=== PATIENT | male | born 1980 | race Caucasian/White ===

== ENCOUNTER 2020-03-11 08:00 | Outpatient (CLI) | payer MEDICAID ==
[2020-03-11 12:08] LABS: BASOPHILS # (AUTO) 0.1 10^3/uL (0.0-0.1); BASOPHILS % (AUTO) 0.9 %; EOSINOPHILS # (AUTO) 0.2 10^3/uL (0.0-0.7); EOSINOPHILS % (AUTO) 2.6 %; HGB - HEMOGLOBIN 15.3 g/dL (14.0-18.0); LYMPHOCYTES # (AUTO) 2.6 10^3/uL (1.5-3.5); LYMPHOCYTES % (AUTO) 39.3 %; MEAN CORPUSCULAR HEMOGLOBIN 29.3 pg (27.0-31.0); MEAN CORPUSCULAR HGB CONC 33.3 g/dL (32.0-36.0); MEAN PLATELET VOLUME 9.6 fL (7.4-11.4); MONOCYTES # (AUTO) 0.6 10^3/uL (0.0-1.0); MONOCYTES % (AUTO) 9.4 %; NEUTROPHILS # (AUTO) 3.1 10^3/uL (1.5-6.6); NEUTROPHILS % (AUTO) 47.3 %; PLT - PLATELET COUNT 283 10^3/uL (130-450); RED BLOOD COUNT 5.23 10^6/uL (4.70-6.10); RED CELL DISTRIBUTION WIDTH 15.3 % (12.0-15.0); WHITE BLOOD COUNT 6.5 x10^3/uL (4.8-10.8)
[2020-03-11 12:46] LABS: % IRON SATURATION 28 % (20-50); ALBUMIN 4.6 g/dL (3.2-5.5); ALBUMIN/GLOBULIN RATIO 1.4 (1.0-2.2); ALKALINE PHOSPHATASE 67 IU/L (42-121); ALT ALANINE AMINOTRANSFERASE 56 IU/L (10-60); AST ASPARTATE AMINOTRANSFERASE 30 IU/L (10-42); BUN - BLOOD UREA NITROGEN 14 mg/dL (6-20); CALCIUM 9.3 mg/dL (8.5-10.3); CARBON DIOXIDE - CO2 28 mmol/L (21-32); CHLORIDE 106 mmol/L (101-111); CHOL/HDL RATIO 5.2 (<5.0); CHOLESTEROL 207 mg/dL; CREATININE 0.9 mg/dL (0.6-1.2); GLUCOSE 95 mg/dL (70-100); HDL CHOLESTEROL 40 mg/dL; IRON 125 ug/dL (45-182); LDL CHOLESTEROL,CALCULATED 128 mg/dL; LDL/HDL RATIO 3.2 (<3.6); SODIUM 139 mmol/L (135-145); TOTAL IRON BINDING CAPACITY 448 ug/dL (250-450); TRANSFERRIN 320 mg/dL (180-329); VLDL CHOLESTEROL 39 mg/dL
[2020-03-11 12:49] LABS: FERRITIN 70.7 ng/mL (23.9-336.2)
== END 2020-03-11 23:59 | disposition home or self-care (01) ==
LOC: LAB.WCP 08:00
PROVIDERS: ATTEND Registered Nurse
DX: R03.0 Elevated blood-pressure reading, without diagnosis of hypertension (principal); R06.02 Shortness of breath; Z20.5 Contact with and (suspected) exposure to viral hepatitis; R79.0 Abnormal level of blood mineral
CPT/HCPCS: 36415; 80053; 80061; 82728; 83540; 83721; 84443; 84466; 85025

== ENCOUNTER 2023-02-09 10:47 | Emergency (ER) | payer MEDICAID ==
[2023-02-09 11:20] LABS: BASOPHILS % (AUTO) 0.3 %; EOSINOPHILS % (AUTO) 0.6 %; HCT - HEMATOCRIT 44.6 % (42.0-52.0); HGB - HEMOGLOBIN 15.7 g/dL (14.0-18.0); LYMPHOCYTES # (AUTO) 1.1 10^3/uL (1.5-3.5); MEAN CORPUSCULAR HEMOGLOBIN 30.7 pg (27.0-31.0); MEAN CORPUSCULAR HGB CONC 35.2 g/dL (32.0-36.0); MEAN CORPUSCULAR VOLUME 87.1 fL (80.0-94.0); MEAN PLATELET VOLUME 9.5 fL (7.4-11.4); MONOCYTES # (AUTO) 0.5 10^3/uL (0.0-1.0); MONOCYTES % (AUTO) 7.6 %; NEUTROPHILS # (AUTO) 5.2 10^3/uL (1.5-6.6); NEUTROPHILS % (AUTO) 75.1 %; PLT - PLATELET COUNT 271 10^3/uL (130-450); RED BLOOD COUNT 5.12 10^6/uL (4.70-6.10); RED CELL DISTRIBUTION WIDTH 12.4 % (12.0-15.0); WHITE BLOOD COUNT 6.9 x10^3/uL (4.8-10.8)
[2023-02-09 11:32] LABS: ALBUMIN 4.8 g/dL (3.2-5.5); ALBUMIN/GLOBULIN RATIO 1.4 (1.0-2.2); BILIRUBIN,TOTAL 1.4 mg/dL (0.2-1.0); CALCIUM 9.5 mg/dL (8.5-10.3); POTASSIUM 4.4 mmol/L (3.5-5.0); TOTAL PROTEIN 8.2 g/dL (6.7-8.2)
[2023-02-09 12:39] LABS: BILIRUBIN,URINE NEGATIVE (NEGATIVE); CLARITY,URINE CLEAR (CLEAR); GLUCOSE, URINE (UA) NEGATIVE (NEGATIVE); KETONES,URINE (UA) NEGATIVE (NEGATIVE); LEUKOCYTE ESTERASE, URINE NEGATIVE (NEGATIVE); NITRITE,URINE NEGATIVE (NEGATIVE); OCCULT BLOOD,URINE NEGATIVE (NEGATIVE); PROTEIN,URINE NEGATIVE (NEGATIVE); UROBILINOGEN,URINE 0.2 (NORMAL) E.U./dL (NORMAL)
--- NOTE | 2023-02-09 12:45 | ED Physician Documentation ---
History of Present Illness - Stated complaint Stated Complaint: RT SIDE PX,VOMITING - Chief complaint Chief Complaint: Abd Pain - History obtained from History obtained from: Patient - History of Present Illness Timing: Today Pain level max: 7 Pain level now: 4 - Additonal information Additional information: 43 year old male states that he has had dental pain and tried to have a tooth extracted yesterday, but states "they couldn't get me numb" and had to abort the procedure. states took tylenol last night starting at about 6p. States took 15 tabs, 500mg each over the course of 9 hours. Had nausea and vomiting this morning. Started clindamycin last night as well. Sent here from walk in clinic for evaluation. currently asymptomatic. Review of Systems Constitutional: denies: Fever, Chills Respiratory: denies: Cough GI: reports: Nausea, Vomiting (Earlier today). denies: Hematemesis, Bloody / black stool Skin: denies: Rash Musculoskeletal: denies: Neck pain, Back pain Neurologic: denies: Headache PD PAST MEDICAL HISTORY - Past Medical History Past Medical History: No - Past Surgical History Past Surgical History: No - Present Medications Home Medications: Ambulatory Orders Medication Instructions Recorded Confirmed clindamycin HCL [Clindamycin HCl] 300 mg PO QID 02/09/23 02/09/23 - Allergies Allergies/Adverse Reactions: Allergies Allergy/AdvReac Type Severity Reaction Status Date / Time No Known Drug Allergies Allergy Verified 02/09/23 10:57 - Living Situation Living Situation: reports: With family Living Arrangement: reports: At home - Social History Does the pt have substance abuse?: No - Family History Family history: reports: Non contributory PD ED PE NORMAL - Vitals Vital signs reviewed: Yes - General General: Alert and oriented X 3, No acute distress - HEENT HEENT: Moist mucous membranes - Neck Neck: Supple, no meningeal sign - Cardiac Cardiac: RRR - Respiratory Respiratory: No respiratory distress, Clear bilaterally - Abdomen Abdomen: Soft, Non tender, Non distended - Derm Derm: Warm and dry - Neuro Neuro: Alert and oriented X 3 - Psych Psych: Normal mood, Normal affect Results - Vitals Vitals: Vital Signs - 24 hr 02/09/23 02/09/23 02/09/23 10:52 14:00 15:42 Temperature 36.3 C L Heart Rate 67 51 L 50 L Respiratory 14 16 17 Rate Blood Pressure 143/103 H 148/103 H O2 Saturation 98 96 98 02/09/23 02/09/23 02/09/23 16:55 18:00 18:25 Temperature Heart Rate 73 57 L Respiratory 16 16 16 Rate Blood Pressure O2 Saturation 98 97 02/09/23 02/09/23 02/09/23 19:29 20:11 21:40 Temperature 36.2 C L Heart Rate 70 53 L 53 L Respiratory 16 15 15 Rate Blood Pressure 139/90 H O2 Saturation 97 98 98 Oxygen O2 Source Room air - Labs Labs: Laboratory Tests 02/09/23 02/09/23 02/09/23 11:14 11:14 12:24 WBC 6.9 RBC 5.12 Hgb 15.7 Hct 44.6 MCV 87.1 MCH 30.7 MCHC 35.2 RDW 12.4 Plt Count 271 MPV 9.5 Neut # (Auto) 5.2 Lymph # (Auto) 1.1 L [place] # (Auto) 0.5 Eos # (Auto) 0.0 Baso # (Auto) 0.0 Absolute Nucleated RBC 0.00 Nucleated RBC % 0.0 PT INR APTT Sodium 138 Potassium 4.4 Chloride 105 Carbon Dioxide 26 Anion Gap 7.0 BUN 13 Creatinine 1.0 Estimated GFR (MDRD) 82 L Glucose 122 H Calcium 9.5 Total Bilirubin 1.4 H AST 23 ALT 37 Alkaline Phosphatase 68 Total Protein 8.2 Albumin 4.8 Globulin 3.4 Albumin/Globulin Ratio 1.4 Lipase 28 Urine Color DARK YELLOW Urine Clarity CLEAR Urine pH 6.0 Ur Specific [place] >=1.030 H Urine Protein NEGATIVE Urine Glucose (UA) NEGATIVE Urine Ketones NEGATIVE Urine Occult Blood NEGATIVE Urine Nitrite NEGATIVE Urine Bilirubin NEGATIVE Urine Urobilinogen 0.2 (NORMAL) Ur Leukocyte Esterase NEGATIVE Ur Microscopic Review NOT INDICATED Urine Culture Comments NOT INDICATED Acetaminophen 02/09/23 02/09/23 12:45 12:45 WBC RBC Hgb Hct MCV MCH MCHC RDW Plt Count MPV Neut # (Auto) Lymph # (Auto) [place] # (Auto) Eos # (Auto) Baso # (Auto) Absolute Nucleated RBC Nucleated RBC % PT 12.0 INR 1.1 APTT 23.7 L Sodium Potassium Chloride Carbon Dioxide Anion Gap BUN Creatinine Estimated GFR (MDRD) Glucose Calcium Total Bilirubin AST ALT Alkaline Phosphatase Total Protein Albumin Globulin Albumin/Globulin Ratio Lipase Urine Color Urine Clarity Urine pH Ur Specific [place] Urine Protein Urine Glucose (UA) Urine Ketones Urine Occult Blood Urine Nitrite Urine Bilirubin Urine Urobilinogen Ur Leukocyte Esterase Ur Microscopic Review Urine Culture Comments Acetaminophen 13 PD Medical Decision Making - ED course Complexity details: reviewed results, re-evaluated patient, considered differential, d/w patient, d/w solutions market consultant ED course: CBC does not show any acute abnormalities. Coagulation studies are normal. ER abdominal panel is normal except a bilirubin of 1.4. Urine is normal. Tox screen shows a Tylenol level of 13. appox 18hrs and 45 mins post ingestion. I discussed the case with poison control. Given his time postingestion of 18 hours and 45 minutes, the acetaminophen level of 13 meets the threshold to treat. Therefore we will place the patient on N-acetylcysteine for the next 20 hours. There are no beds available in the hospital here, therefore he will be in the emergency department. Patient will be signed out to the [facility] emergency department physician. His dental pain was well controlled with Toradol IV. He was given IV Zofran for nausea. He was also given a dose of IV Rocephin for the dental infection. This document was made in part using voice recognition software. While efforts are made to proofread this document, sound alike and grammatical errors may occur. Departure - Departure Clinical Impression: Dental infection Acetaminophen overdose Qualifiers: Encounter type: initial encounter Injury intent: accidental or unintentional Qualified Code(s): T39.1X1A - Poisoning by 4-Aminophenol derivatives, accidental (unintentional), initial encounter Condition: Stable
[2023-02-09 12:55] LABS: INR 1.1 (0.8-1.2)
[2023-02-09 13:03] LABS: PARTIAL THROMBOPLASTIN TIME 23.7 secs (24.9-33.3)
[2023-02-09] MEDS ORDERED: ACETYLCYSTEINE IV STA (13:44)
[2023-02-09] MEDS ORDERED: ACETYLCYSTEINE IV ONE (13:44)
[2023-02-09] MEDS ORDERED: DEXTROSE 5% IV STA (13:44)
[2023-02-09] MEDS ORDERED: DEXTROSE 5% IV ONE (13:44)
[2023-02-09] MEDS ORDERED: KETOROLAC 30 MG/ML VIAL IVP STA ×2 (14:25→21:06)
[2023-02-09] MEDS ORDERED: cefTRIAXone 1 GM VIAL IVP STA (14:25)
[2023-02-09] MEDS: DEXTROSE 5% IV ONE ×2 (14:56→16:41)
[2023-02-09] MEDS: ACETYLCYSTEINE IV ONE ×2 (14:56→16:41)
[2023-02-09] MEDS ORDERED: TEMAZEPAM 15 MG CAPSULE PO STA (23:47)
[2023-02-10 04:13] LABS: ALBUMIN 3.8 g/dL (3.2-5.5); ALBUMIN/GLOBULIN RATIO 1.2 (1.0-2.2); BILIRUBIN,TOTAL 0.7 mg/dL (0.2-1.0); CALCIUM 8.9 mg/dL (8.5-10.3); CREATININE 0.9 mg/dL (0.6-1.2); POTASSIUM 3.1 mmol/L (3.5-5.0)
[2023-02-10] MEDS ORDERED: oxyCODONE 5 MG TABLET PO STA (04:15)
[2023-02-10] MEDS ORDERED: IBUPROFEN 600 MG TABLET PO STA (05:20)
[2023-02-10] MEDS ORDERED: KETOROLAC 15 MG/ML VIAL IVP STA (05:51)
[2023-02-10 12:12] LABS: INR 1.1 (0.8-1.2); PT - PROTHROMBIN TIME 12.6 secs (9.9-12.6)
[2023-02-10 12:20] LABS: ACETAMINOPHEN < 10 ug/mL (10-30); ALKALINE PHOSPHATASE 65 IU/L (42-121); ALT ALANINE AMINOTRANSFERASE 40 IU/L (10-60); AST ASPARTATE AMINOTRANSFERASE 25 IU/L (10-42); BILIRUBIN,DIRECT 0.1 mg/dL (0.1-0.5); BILIRUBIN,TOTAL 0.7 mg/dL (0.2-1.0); TOTAL PROTEIN 7.5 g/dL (6.7-8.2)
[2023-02-10] MEDS ORDERED: CLINDAMYCIN 150 MG CAPSULE PO STA (12:29)
[2023-02-10] MEDS ORDERED: KETOROLAC 30 MG/ML VIAL IVP STA (12:30)
--- NOTE | 2023-02-10 12:43 | ED Physician Documentation ---
ED Addendum - Addendum Addendum: Patient signed out to me by overnight physician. Patient has been boarding in the emergency department Receiving N-acetylcysteine for accidental acetaminophen overdose. Patient has no complaints this morning. He has been ambulating to the bathroom. Primary RN has reached out to poison control. Poison control was recommended rechecking acetaminophen, INR and LFTs right now. If they are normal then patient can be discharged. 1240 - Reviewed results with patient. Patient has been on clindamycin for dental infection. Will give dose now. No drainable abscess seen on exam. Repeat labs reviewed and acetaminophen level is less than 10, Normal LFTs and INR. Patient appears to be medically cleared from his accidental acetaminophen overdose. Poison control has informed us that they would recommend another set of labs 4 hours from this most recent. These labs were obtained and again are unremarkable. Do not feel patient requires further treatment for unintentional acetaminophen overdose. Patient counseled on need for close follow-up with his dentist and advised on concerning symptoms to return for Departure - Departure Disposition: 01 Home, Self Care Clinical Impression: Dental infection Acetaminophen overdose Qualifiers: Encounter type: initial encounter Injury intent: accidental or unintentional Qualified Code(s): T39.1X1A - Poisoning by 4-Aminophenol derivatives, accidental (unintentional), initial encounter Condition: Stable Instructions: ED Cavity Dental, ED Overdose Accidental Comments: Please continue with taking your antibiotic as prescribed. You need to continue to have close follow-up with your dentist. Please take caution when using medication such as acetaminophen - Do not exceed more than 3000 mg of acetaminophen per day. You can continue with Anti-inflammatory such as ibuprofen for your pain.
[2023-02-10 16:06] LABS: INR 1.1 (0.8-1.2); PT - PROTHROMBIN TIME 12.4 secs (9.9-12.6)
[2023-02-10 16:13] LABS: ACETAMINOPHEN < 10 ug/mL (10-30); ALBUMIN 4.1 g/dL (3.2-5.5); ALKALINE PHOSPHATASE 63 IU/L (42-121); ALT ALANINE AMINOTRANSFERASE 44 IU/L (10-60); AST ASPARTATE AMINOTRANSFERASE 28 IU/L (10-42); BILIRUBIN,DIRECT 0.1 mg/dL (0.1-0.5); BILIRUBIN,TOTAL 0.7 mg/dL (0.2-1.0); TOTAL PROTEIN 7.5 g/dL (6.7-8.2)
[2023-02-10 17:12] VITALS: BP 154/97
== END 2023-02-10 17:11 | disposition home or self-care (01) ==
LOC: ED 10:47
DX: K08.89 Other specified disorders of teeth and supporting structures (principal); T39.1X1A Poisoning by 4-Aminophenol derivatives, accidental (unintentional), initial encounter
CPT/HCPCS: 36415; 80053; 80076; 80307; 81003; 83690; 85025; 85610; 85730; 96365; 96366; 96368; 96375; 96376; 99284; A9270; J0132; J3490; 81001; 87086

== ENCOUNTER 2023-04-19 21:32 | Emergency (ER) | payer MEDICAID ==
[2023-04-19 21:53] VITALS: BP 169/94
--- NOTE | 2023-04-19 23:38 | ED Physician Documentation ---
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 He did not see any FB on inspection. He presents to ED at this time due to ongoing sharp FB sensation and is concerned there might still be splinter of wood in the left hand. Patient says he made small incision to area in attempt to visualize splinter but did not see any FB. PD PAST MEDICAL HISTORY - Past Medical History Cardiovascular: None Respiratory: None Neuro: None Endocrine/Autoimmune: None GI: None : None HEENT: None Psych: None Musculoskeletal: None Derm: None - Past Surgical History Past Surgical History: No - Present Medications Home Medications: Ambulatory Orders Medication Instructions Recorded Confirmed clindamycin HCL [Clindamycin HCl] 300 mg PO QID 02/09/23 02/09/23 - Allergies Allergies/Adverse Reactions: Allergies Allergy/AdvReac Type Severity Reaction Status Date / Time No Known Drug Allergies Allergy Verified 04/19/23 21:53 - Social History Does the pt smoke?: No Smoking Status: Never smoker Does the pt drink ETOH?: No Does the pt have substance abuse?: No - Immunizations Immunizations are current?: No - POLST Patient has POLST: No PD ED PE NORMAL - Vitals Vital signs reviewed: Yes - General General: Alert and oriented X 3, No acute distress, Well developed/nourished PD ED PE EXPANDED - Extremities NEVAEH UE/Hands Visual: 1 - tenderness (puncture wound) 2 - tenderness (puncture) Results - Vitals Vitals: Oxygen O2 Source Room air PD Medical Decision Making - ED course Complexity details: considered differential, d/w patient ED course: there are two areas on left hand (one on dorsum, one on palmar / ventral aspect) of puncture. I do not visualize FB on gross inspection nor with superficial transillumination using bedside otoscope. Patient feels sharp pain with palpation of the lesion on the palmar aspect. I had to attend to a phone call regarding care of another ED patient and excused myself but explained that I would return and undertake further inspection for FB. Unfortunately, upon my return to the room, patient had apparently eloped. He did not give me any indication of dissatisfaction nor impatience when I last was speaking with him. Departure - Departure Disposition: ED [place] Clinical Impression: Puncture wound, hand Qualifiers: Encounter type: initial encounter Foreign body presence: unspecified Laterality: right Qualified Code(s): S61.431A - Puncture wound without foreign body of right hand, initial encounter Condition: Good Discharge Date/Time: 04/20/23 01:00
== END 2023-04-20 01:00 | disposition left against medical advice (07) ==
LOC: ED 21:32
DX: S61.431A Puncture wound without foreign body of right hand, initial encounter (principal); X58.XXXA Exposure to other specified factors, initial encounter; Y93.89 Activity, other specified
CPT/HCPCS: 99281; 99282

== ENCOUNTER 2024-02-17 20:25 | Emergency (ER) | payer MEDICAID ==
[2024-02-17 20:39] VITALS: BP 150/90; O2SAT 98
[2024-02-17] MEDS: PROPARACAINE 0.5% OPHTH DROPS 15 ML LEFTEYE STA (20:57)
--- NOTE | 2024-02-17 20:58 | ED Physician Documentation ---
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 Vision is not affected. To the left eye. PD PAST MEDICAL HISTORY - Past Medical History Cardiovascular: None Respiratory: None Neuro: None Endocrine/Autoimmune: None GI: None : None HEENT: None Psych: None Musculoskeletal: None Derm: None - Past Surgical History Past Surgical History: No - Present Medications Home Medications: Ambulatory Orders Medication Instructions Recorded Confirmed No Known Home Medications 02/17/24 02/17/24 - Allergies Allergies/Adverse Reactions: Allergies Allergy/AdvReac Type Severity Reaction Status Date / Time No Known Drug Allergies Allergy Verified 02/17/24 20:29 - Social History Does the pt smoke?: No Smoking Status: Never smoker Does the pt drink ETOH?: No Does the pt have substance abuse?: No - Immunizations Immunizations are current?: No - POLST Patient has POLST: No PD ED PE NORMAL - Vitals Vital signs reviewed: Yes - General General: Alert and oriented X 3, No acute distress - HEENT HEENT: Other (On the very far lateral edge of the left cornea there is a tiny metallic foreign body without rust ring.) - Neuro Neuro: Alert and oriented X 3 Results - Vitals Vitals: Vital Signs - 24 hr 02/17/24 20:29 Temperature 36.8 C Heart Rate 100 Respiratory 16 Rate Blood Pressure 150/90 H O2 Saturation 98 Oxygen O2 Source Room air Procedures - FB removal FB location: Other (Left cornea) FB removal preparation: Local anesthesia-specify (Proparacaine) Removal method: Other (Moistened Q-tip) FB removal aftercare: Removed successfully (Removed successfully and subsequently did fluorescein without any uptake. There is no rust ring.) Departure - Departure Disposition: 01 Home, Self Care Clinical Impression: Corneal FB (foreign body) Qualifiers: Encounter type: initial encounter Laterality: left Qualified Code(s): T15.02XA - Foreign body in cornea, left eye, initial encounter Condition: Good Record reviewed to determine appropriate education?: Yes Instructions: ED Foreign Body Cornea Comments: Return if you have you have any persistent problems. I do not expect any problems though. Forms: PCP List
== END 2024-02-17 21:25 | disposition home or self-care (01) ==
LOC: ED 20:25
DX: T15.02XA Foreign body in cornea, left eye, initial encounter (principal); W44.E9XA Other non-magnetic metal objects entering into or through a natural orifice, initial encounter; X58.XXXA Exposure to other specified factors, initial encounter
CPT/HCPCS: 65220; 99282; J3490

== ENCOUNTER 2024-04-18 10:04 | Emergency (ER) | payer MEDICAID ==
[2024-04-18 10:26] VITALS: BP 177/100; O2SAT 99
[2024-04-18 10:39] LABS: RAPID STREP SCREEN Negative (Negative)
--- NOTE | 2024-04-18 11:01 | XRAY Report ---
PROCEDURE: Chest 2V INDICATIONS: cough x 3 weeks TECHNIQUE: 2 views of the chest were acquired. COMPARISON: None. FINDINGS: Surgical changes and devices: None. Lungs and pleura: No pleural effusions or pneumothorax. Lungs are clear. Mediastinum: Mediastinal contours appear normal. Heart size is normal. Bones and chest wall: No suspicious bony lesions. Overlying soft tissues appear unremarkable. IMPRESSION: No acute cardiopulmonary process. Reviewed by: Darío Coates MD on 04/18/2024 11:00 AM PDT Approved by: Darío Coates MD on 04/18/2024 11:00 AM PDT Station ID: [id number]
[2024-04-18 11:24] LABS: B. PARAPERTUSSIS- RESP PCR PAN NOT DETECTED; B. PERTUSSIS- RESP PCR PANEL NOT DETECTED; C. PNEUMONIAE- RESP PCR PANEL NOT DETECTED; CORONAVIRUS 229E-RESP PCR NOT DETECTED; CORONAVIRUS HKU1-RESP PCR NOT DETECTED; CORONAVIRUS NL63-RESP PCR NOT DETECTED; CORONAVIRUS OC43-RESP PCR NOT DETECTED; HUMAN METAPNEUMOVIRUS NOT DETECTED; INFLUENZA A- RESP PCR PANEL NOT DETECTED; INFLUENZA B - RESP PCR PANEL NOT DETECTED; M. PNEUMONIAE- RESP PCR PANEL NOT DETECTED; PARAINFLUENZA VIRUS 1 NOT DETECTED; PARAINFLUENZA VIRUS 2 NOT DETECTED; PARAINFLUENZA VIRUS 3 NOT DETECTED; PARAINFLUENZA VIRUS 4 NOT DETECTED; RHINOVIRUS/ENTEROVIRUS NOT DETECTED; RSV- RESP PCR PANEL NOT DETECTED; SARS-CoV-2 -RESP PCR PANEL NOT DETECTED
--- NOTE | 2024-04-18 12:12 | ED Physician Documentation ---
PD HPI URI - Stated complaint Stated Complaint: COUGH,UNWELL - Chief complaint Chief Complaint: Resp - History obtained from History obtained from: Patient - History of Present Illness Timing - onset: How many weeks ago (3) Timing duration: Weeks (3) Timing details: Abrupt onset, Still present Associated symptoms: Fever (initially), Chills, Nasal congestion, Dry cough (for the 3 weeks and has increased the past several days, with tightness, now some productive.), Productive cough (now the past few days.), Dyspnea. No: Hemo ptysis, Chest pain Contributing factors: Sick contact (he states his whole family was similarly sick and the rest were better after a week. His has persisted.) Worsened by: Activity PD PAST MEDICAL HISTORY - Past Medical History Past Medical History: Yes Cardiovascular: None Respiratory: None Neuro: None Endocrine/Autoimmune: None GI: None : None HEENT: None Psych: None Musculoskeletal: None Derm: None - Past Surgical History Past Surgical History: No - Present Medications Home Medications: Ambulatory Orders Medication Instructions Recorded Confirmed Albuterol Sulf [Ventolin Hfa 2 - 3 puffs INH QID 15 Days #1 each 04/18/24 Inhaler] Amoxicillin 500 mg PO TID 5 Days #15 cap 04/18/24 Benzonatate [Tessalon] 100 mg PO TID PRN #20 cap 04/18/24 dexAMETHasone [Decadron] 4 mg PO DAILY #5 tablet 04/18/24 - Allergies Allergies/Adverse Reactions: Allergies Allergy/AdvReac Type Severity Reaction Status Date / Time No Known Drug Allergies Allergy Verified 04/18/24 10:20 - Social History Does the pt smoke?: No Smoking Status: Never smoker Does the pt drink ETOH?: No Does the pt have substance abuse?: No - Immunizations Immunizations are current?: No - POLST Patient has POLST: No PD ED PE NORMAL - Vitals Vital signs reviewed: Yes - General General: Alert and oriented X 3, No acute distress, Well developed/nourished - HEENT HEENT: Pharynx benign - Neck Neck: Supple, no meningeal sign - Cardiac Cardiac: RRR, No murmur - Respiratory Respiratory: No respiratory distress, Clear bilaterally (no coarse sounds but has less tidal volume with deep breathing. Causes caoughing. ) Results - Vitals Vitals: Oxygen O2 Source Room air - Labs Labs: Microbiology 04/18/24 10:25 Group A Strep Throat Culture - Preliminary Throat CULTURE IN PROGRESS. RESULTS TO FOLLOW. Laboratory Tests 04/18/24 04/18/24 10:25 10:25 Nasal Adenovirus (PCR) NOT DETECTED Nasal B. parapertussis DNA (PCR) NOT DETECTED Nasal Coronavir 229E PCR NOT DETECTED Nasal Coronavir HKU1 PCR NOT DETECTED Nasal Coronavir NL63 PCR NOT DETECTED Nasal Coronavir OC43 PCR NOT DETECTED Nasal Enterovir/Rhinovir PCR NOT DETECTED Nasal Influenza B PCR NOT DETECTED Nasal Influenza A PCR NOT DETECTED Nasal Parainfluen 1 PCR NOT DETECTED Nasal Parainfluen 2 PCR NOT DETECTED Nasal Parainfluen 3 PCR NOT DETECTED Nasal Parainfluen 4 PCR NOT DETECTED Nasal RSV (PCR) NOT DETECTED Nasal B.pertussis DNA PCR NOT DETECTED Nasal C.pneumoniae (PCR) NOT DETECTED Bruce Human Metapneumo PCR NOT DETECTED Nasal M.pneumoniae (PCR) NOT DETECTED Nasal SARS-CoV-2 (PCR) NOT DETECTED Group A Strep Rapid Negative - Rads (name of study) chest xray Relevant Findings:: Prelim report reviewed, EMP independent interpretation of test (no infiltrates. ) PD Medical Decision Making - ED course Complexity details: considered differential (had URI/presumed viral with whole family sick. His cough persists and now worse, so likely secondary bronchitis versus new virus. ), d/w patient Departure - Departure Disposition: 01 Home, Self Care Clinical Impression: Bronchitis Condition: Stable Record reviewed to determine appropriate education?: Yes Instructions: ED Upper Resp Infec Abx Tx Prescriptions: Amoxicillin 500 mg PO TID 5 Days #15 cap dexAMETHasone [Decadron] 4 mg PO DAILY #5 tablet Benzonatate [Tessalon] 100 mg PO TID PRN #20 cap PRN Reason: Cough Albuterol Sulf [Ventolin Hfa Inhaler] 2 - 3 puffs INH QID 15 Days #1 each Comments: It is not too unusual to have a patchy awaiting cough for several weeks or months. However with your symptoms increasing in the hoarseness and some mild sputum production, it does give idea to the secondary bacterial infection/bronchitis developing. Your chest x-ray does not show any signs of pneumonia nor masses or tumors. Your respiratory viral panel is negative for the main larger viruses. This does give credence to the idea of a bacterial bronchitis now. I would treat this with an antibiotic and a steroid anti-inflammatory as well as a butyryl inhaler 4 times daily to help with breathing and cough. To that add the Mucinex or benzonatate for cough. I would anticipate improvement over the next several days or so. There may be some residual cough that last for couple weeks. I sent your prescriptions to your preferred pharmacy, [facility] in [place]. Forms: PCP List Discharge Date/Time: 04/18/24 12:51
[2024-04-18] MEDS: BENZONATATE 100 MG CAPSULE PO STA (12:48)
[2024-04-18] MEDS: dexAMETHasone 4 MG TABLET PO STA (12:48)
[2024-04-18] MEDS: AMOXICILLIN 250 MG CAPSULE PO STA (12:48)
== END 2024-04-18 12:51 | disposition home or self-care (01) ==
LOC: ED 10:04
DX: J40 Bronchitis, not specified as acute or chronic (principal)
CPT/HCPCS: 71046; 87070; 87430; 87633; 99284; A9270; J8540